=== PATIENT | female | born 1970 | race Caucasian/White ===

== ENCOUNTER 2016-07-17 14:29 | Emergency (ER) | payer SELFPAY, OTHER | END 2016-07-17 16:50 | disposition home or self-care (01) | LOC: ER 14:29 | DX: S93.401A Sprain of unspecified ligament of right ankle, initial encounter (principal); S50.11XA Contusion of right forearm, initial encounter; F41.9 Anxiety disorder, unspecified; F17.210 Nicotine dependence, cigarettes, uncomplicated; Z79.899 Other long term (current) drug therapy; Z88.5 Allergy status to narcotic agent ==